=== PATIENT | male | born 1970 | race African-American/Black ===

== ENCOUNTER 2023-12-03 10:33 | Emergency (ER) | payer SELFPAY ==
[~2023-12-03] VITALS: Ht 182.9 cm; Wt 80.0 kg
[~2023-12-03 10:33] MED LIST: ALPR2TAB2; CLON-866; VIC
[2023-12-03 10:34] VITALS: BP 139/98; PULSE 81; RESP 18; TEMP 98.5; O2SAT 98
== END 2023-12-03 12:34 | disposition home or self-care (01) ==
LOC: ER 10:33
DX: Z00.00 Encounter for general adult medical examination without abnormal findings (principal)
CPT/HCPCS: 99283

== ENCOUNTER 2024-06-26 19:35 | Emergency (ER) | payer SELFPAY ==
[~2024-06-26] VITALS: Ht 180.3 cm; Wt 76.0 kg
[2024-06-26 19:52] VITALS: O2SAT 96
[2024-06-26 19:56] VITALS: BP 143/83; PULSE 102; RESP 16; TEMP 36.6; O2SAT 96
[2024-06-26 22:30] LABS: DIFFERENTIAL COMMENT 0; EOSINOPHILS % 2.1 % (0.0-5.0); HEMATOCRIT. 31.2 % (42.0-52.0); HEMOGLOBIN. 10.3 g/dL (14.0-18.0); LYMPHOCYTES % 16.1 % (20.0-50.0); MEAN CORPUSCULAR HEMOGLOBIN 34.5 pg (28.0-32.0); MEAN CORPUSCULAR HGB CONC 33.1 g/dL (31.0-37.0); MEAN CORPUSCULAR VOLUME 104.3 fL (80.0-94.0); MONOCYTES % 10.3 % (2.0-8.0); NEUTROPHILS % 68.5 % (40.0-76.0); PLATELET 289 x1000/uL (130-400); RED BLOOD CELL COUNT 2.99 mill/uL (4.7-6.1); WHITE BLOOD COUNT 7.7 x1000/uL (4.5-11.0)
[2024-06-26 22:47] LABS: CHLORIDE 106 mEq/L (98-107); POTASSIUM 3.7 mEq/L (3.5-5.1); SODIUM 142 mEq/L (136-145)
[2024-06-26 22:48] LABS: CALCIUM 9.7 mg/dL (8.7-10.4); CARBON DIOXIDE 30 mEq/L (21-32)
[2024-06-26 22:53] LABS: CREATININE 0.7 mg/dL (0.6-1.3); GLUCOSE 82 mg/dL (70-105); UREA NITROGEN BLOOD 7 mg/dL (9-23)
[2024-06-26 22:54] LABS: ETHANOL BLOOD 49 mg/dL (<10)
[2024-06-26 22:55] LABS: ACETAMINOPHEN < 2 ug/mL (10-30); ALANINE AMINOTRANSFERASE 78 IU/L (10-49); ALBUMIN 4.1 g/dL (3.2-4.8); ASPARTATE AMINOTRANSFERASE 108 IU/L (<34); BILIRUBIN DIRECT 0.3 mg/dL (<=3.0); BILIRUBIN TOTAL 0.7 mg/dL (0.1-1.0); PROTEIN TOTAL 6.8 g/dL (6.0-8.3)
[2024-06-26 22:57] LABS: *AMPHETAMINES SCREEN URINE NEGATIVE (NEGATIVE); *BARBITURATES SCREEN URINE NEGATIVE (NEGATIVE); *BENZODIAZEPINES SCREEN URINE NEGATIVE (NEGATIVE); *COCAINE SCREEN URINE PRESUMPTIVE POSITIVE (NEGATIVE); METHADONE URINE SCREEN NEGATIVE (NEGATIVE)
[2024-06-26 22:58] LABS: CANNABINOID URINE SCREEN PRESUMPTIVE POSITIVE (NEGATIVE); ECSTASY MDMA SCREEN URINE NEGATIVE (NEGATIVE); OPIATES URINE SCREEN NEGATIVE (NEGATIVE); PHENCYCLIDINE URINE SCREEN NEGATIVE (NEGATIVE)
[2024-06-26 22:58] LABS: TROPONIN I HIGH SENSITIVITY < 4 ng/L (3.0-53)
[2024-06-27] MEDS ORDERED: IBUPROFEN 400MG TABLET PO ONE (00:15)
== END 2024-06-26 23:59 | disposition home or self-care (01) ==
LOC: ER 19:35
DX: R42 Dizziness and giddiness (principal); F10.129 Alcohol abuse with intoxication, unspecified; Z79.899 Other long term (current) drug therapy; Y90.2 Blood alcohol level of 40-59 mg/100 ml
CPT/HCPCS: 36415; 80048; 80076; 80305; 80307; 80320; 80329; 84484; 85025; 93005; 99284; G0480